=== PATIENT | female | born 1990 | race Caucasian/White ===

== ENCOUNTER 2019-06-12 09:52 | Outpatient (CLI) | payer MEDICAID ==
[~2019-06-12 09:52] MED LIST: FERRIC CARBOXYMALTOSE 750 MG in NORMAL SALINE 250 ML IV PRN; NORMAL SALINE 250 ML IV PRN
[2019-06-12 10:04] VITALS: BP 97/84
== END 2019-06-12 11:10 | disposition home or self-care (01) ==
LOC: II 09:52 → 5TH 09:57 → II 11:10
PROVIDERS: ATTEND Advanced Practice Midwife
DX: O99.019 Anemia complicating pregnancy, unspecified trimester (principal)
CPT/HCPCS: 96365; J7050; J1439

== ENCOUNTER 2019-06-20 12:30 | Outpatient (CLI) | payer MEDICAID ==
[2019-06-20 13:10] VITALS: BP 119/64
== END 2019-06-20 13:35 | disposition home or self-care (01) ==
LOC: II 12:30 → 5TH 12:32 → II 13:35
PROVIDERS: ATTEND Advanced Practice Midwife
DX: O99.019 Anemia complicating pregnancy, unspecified trimester (principal)
CPT/HCPCS: 96365; J7050; J1439

== ENCOUNTER 2019-08-14 01:24 | Inpatient (IN) | payer MEDICAID ==
[2019-08-14] MEDS ORDERED: RINGERS SOLUTION,LACTATED 1,000 ML IV PRN (01:28)
[2019-08-14] MEDS ORDERED: MAG HYDROX/AL HYDROX/SIMETH SUSP 30 ML UDCUP PO PRN (01:28)
[2019-08-14] MEDS ORDERED: RINGERS SOLUTION,LACTATED 300 ML IV ONE (01:28)
[2019-08-14] MEDS ORDERED: ACETAMINOPHEN 325 MG TABLET PO PRN (01:28)
[2019-08-14] MEDS ORDERED: DINOPROSTONE 10 MG VAGINAL INSERT.SR PV ONE (01:28)
[2019-08-14 02:00] LABS: APPEARANCE,URINE SLIGHTLY-CLOUDY; BILIRUBIN,URINE NEGATIVE (NEGATIVE); COLOR,URINE YELLOW; GLUCOSE, URINE NEGATIVE (NEGATIVE); KETONES,URINE NEGATIVE (NEGATIVE); LEUKOCYTE ESTERASE,URINE MODERATE (NEGATIVE); NITRITE,URINE NEGATIVE (NEGATIVE); PROTEIN,URINE NEGATIVE (NEGATIVE); URINE SPECIFIC GRAVITY 1.009; UROBILINOGEN,URINE NEGATIVE mg/dL (<2.0)
[2019-08-14] MEDS ORDERED: OXYTOCIN 10 UNIT/ML VIAL ONE ×2 (02:40→08:55)
[2019-08-14] MEDS ORDERED: DINOPROSTONE 10 MG VAGINAL INSERT.SR ONE (02:40)
[2019-08-14] MEDS ORDERED: ZOLPIDEM TARTRATE 5 MG TABLET ONE (02:40)
[2019-08-14] MEDS ORDERED: MISOPROSTOL 0.2 MG TABLET ONE ×2 (02:41→08:55)
[2019-08-14] MEDS ORDERED: LIDOCAINE 1% INJ-PF (10 MG/ML) 30 ML SDV ONE ×2 (02:41→08:55)
[2019-08-14] MEDS ORDERED: OXYTOCIN/NORMAL SALINE 0 UNIT/0 ML RTUINJ ONE (02:41)
[2019-08-14 02:53] LABS: URINE BARBITURATES SCREEN NEGATIVE; URINE BENZODIAZEPINES SCREEN NEGATIVE; URINE COCAINE SCREEN NEGATIVE; URINE METHADONE SCREEN NEGATIVE; URINE PHENCYCLIDINE SCREEN NEGATIVE
[2019-08-14] MEDS: ZOLPIDEM TARTRATE 5 MG TABLET PO PRN ×2 (03:02→21:58)
[2019-08-14 03:10] LABS: URINE MARIJUANA (THC) SCREEN UNCONFIRMED POSITIVE
[2019-08-14] MEDS ORDERED: MAG HYDROX/AL HYDROX/SIMETH SUSP 30 ML UDCUP ONE (06:40)
[2019-08-14] MEDS ORDERED: FENTANYL CITRATE INJ/PF 100 MCG/2 ML AMPUL IV ONE (07:00)
[2019-08-14] MEDS ORDERED: FENTANYL CITRATE INJ/PF 100 MCG/2 ML AMPUL ONE (07:03)
--- NOTE | 2019-08-14 07:13 | Admission Physical ---
Datetime Report Generated by CPN: 08/14/2019 07:12 CURRENT ADMISSION Chief Complaint: Scheduled Induction of Labor Indication for Induction: Eclampsia-Mild Admit Impression : Term, Intrauterine ; No Active Labor; Intact Membranes; Induction of Labor Admit Plan: Admit to Unit; Initiate Labor Induction Protocol ALLERGIES Medication Allergies: Yes Medication Allergies: Penicillins (06/10/2019); codeine (06/10/2019); sulfamethoxazole (06/10/2019); trimethoprim (06/10/2019) Latex: No Latex Allergies OBSTETRICAL HISTORY EDC: 08/20/2019 00:00 : 4 Para: 2 Livin Gestational Diabetes: No Rh Sensitization: No Incompetent Cervix: No CAMMIE: No Infertility: No ART Treatment: No Uterine Anomaly: No IUGR: No Hx Previous C/S: No Macrosomia: No Hx Loss/Stillborn: No PIH: Yes Hx : No Placenta Previa/Abruption: No Depression/PP Depression: Yes PTL/PROM: No Post Hemorrhage: No Current Procedures: Ultrasound; NST Obstetrical History Comments: G1- 2009 term, IOL for post-dates, G2- 2010, SAB G3- 2016 term, SEE RECORDS Alcohol: No Marijuana : Yes Cocaine: No Other Illicit Drugs: Yes Cigarettes: Current Everyday Smoker. 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 Heart Disease: No Hosp/Surgery: Yes Autoimmune Disorder: No Anesthetic Complications: No Kidney Disease: Yes Abnormal Pap Smear: Yes Neuro/Epilepsy: No Psychiatric Disorders: Yes Other Medical Diseases: No Hepatitis/Liver Disease: No Significant Family History: No Varicosities/Phlebitis: No Trauma/Violence : No Thyroid Dysfunction: No Medical History Comments: recurrent UTIs, anxiety, addiction, depression, PPD, bipolar, ADHD, childbirth, abcess removal in left arm 2013, abnormal pap smear with G3 INFECTIOUS HISTORY Gonorrhea: No Genital Herpes: No Chlamydia: No Tuberculosis: No Syphilis: No Hepatitis: No HIV/AIDS Exposure: No Rash or Viral Illness: No HPV: No PHYSICAL EXAM General: Normal HEENT: Normal Neurologic: Normal Thyroid: Deferred Heart: Normal Lungs: Normal Breast: Deferred Back: Normal Abdomen: Normal Genitourinary Exam: Normal Extremities: Normal DTRs: Normal Pelvic Type: Adequate Vital Signs: Reviewed VAGINAL EXAM Dilatation: 3 Effacement: 50 Station: -2 Contraction Comments: q 2-3 MEMBRANES Membranes: Intact FETUS A EGA: 39.1 Monitoring: External US FHR- Baseline: 120 Variability: Moderate 6-25bpm Accelerations: 15X15 Decelerations: None FHR Category: Category I Presentation: Vertex Admit Comment: 28yo at 39+1ega presents for IOL for PreE. Rh negative. H/o anemia - iron infusions at [facility]. Patient is a smoker but reports that she has cut down. History of meth use - last use in 1st trimester. She reports that baby is up for adoption to her friend - no paperwork available at this time. service planner placed. Admit to labor and delivery and anticipate . PLANS FOR LABOR AND DELIVERY Pain Management: Epidural Feeding Preference: Formula Circumcision: Yes INFORMED CONSENT Informed Consent Obtained: Vaginal Delivery; Induction of Labor; Risks, Benefits and Alternatives Discussed Signature: with User ID: [email or web address]
[2019-08-14 07:15] LABS: HEMATOCRIT 33.3 % (36.0-47.0); HEMOGLOBIN 12.1 g/dL (12.0-15.5); MEAN CORPUSCULAR HGB CONC 36.3 g/dL (32.0-36.0); MEAN CORPUSCULAR VOLUME 94 fl (80-97); PLATELET COUNT 319 10^3/uL (150-450); RED BLOOD COUNT 3.55 10^6/uL (3.72-5.28); RED CELL DISTRIBUTION WIDTH 14.4 % (11.5-14.0); WHITE BLOOD COUNT 14.5 10^3/uL (4.0-10.5)
[2019-08-14] MEDS ORDERED: EPHEDRINE SULFATE INJ 50 MG/1 ML AMPULE ONE (08:53)
[2019-08-14] MEDS ORDERED: BUPIVACAINE HCL 0.25 % INJ/PF (2.5 MG/1 ML) 30 ML VIAL ONE (08:54)
[2019-08-14] MEDS ORDERED: FENTANYL/BUPIVACAINE/NS/PF 300 MCG/150 ML RTUINJ EPI ONE (08:54)
[2019-08-14] MEDS ORDERED: OXYTOCIN/NORMAL SALINE 20 UNIT/1,000 ML RTUINJ ONE (08:55)
[2019-08-14] MEDS ORDERED: OXYTOCIN/NORMAL SALINE 20 UNIT/1,000 ML RTUINJ IV PRN ×2 (10:56→17:38)
[2019-08-14 11:26] LABS: ALBUMIN 2.7 g/dL (3.5-5.0); ALKALINE PHOSPHATASE 122 U/L (38-126); ANION GAP 5 (5-19); ASPARTATE AMINO TRANSFERASE 18 U/L (14-36); BILIRUBIN,TOTAL 0.4 mg/dL (0.2-1.3); BLOOD UREA NITROGEN 7 mg/dL (7-20); CALCIUM 8.7 mg/dL (8.4-10.2); CARBON DIOXIDE 23 mmol/L (22-30); CHLORIDE 106 mmol/L (98-107); GLUCOSE 94 mg/dL (75-110); POTASSIUM 3.3 mmol/L (3.6-5.0); TOTAL PROTEIN 5.4 g/dL (6.3-8.2); URIC ACID 4.1 mg/dL (2.5-6.2)
[2019-08-14] MEDS ORDERED: PSEUDOEPHEDRINE HCL 30 MG TABLET PO PRN (17:38)
[2019-08-14] MEDS ORDERED: DIBUCAINE 1% OINTMENT 28 GM TP PRN (17:38)
[2019-08-14] MEDS ORDERED: GLYCERIN/WITCH HAZEL LEAF 1 EACH MED..WIPE TP PRN (17:38)
[2019-08-14] MEDS ORDERED: ZOLPIDEM TARTRATE 5 MG TABLET PO PRN (17:38)
[2019-08-14] MEDS ORDERED: PROMETHAZINE HCL 25 MG SUPP.RECT PR PRN (17:38)
[2019-08-14] MEDS ORDERED: NA PHOS,M-B/NA PHOS,DI-BA (ADULT) 133 ML ENEMA PR PRN (17:38)
[2019-08-14] MEDS ORDERED: ACETAMINOPHEN WITH CODEINE #3 TABLET PO PRN (17:38)
[2019-08-14] MEDS ORDERED: MAGNESIUM HYDROXIDE SUSP 30 ML UDCUP PO PRN (17:38)
[2019-08-14] MEDS ORDERED: ACETAMINOPHEN 650 MG SUPP.RECT PR PRN (17:38)
[2019-08-14] MEDS ORDERED: MEASLES,MUMPS&RUBELLA VACC/PF 0.5 ML VIAL SUBCUT PRN (17:38)
[2019-08-14] MEDS ORDERED: DIPH/PERTUSS(ACELL)/TETANUS VAC/PF 0.5 ML SYR (>=10YO) IM PRN (17:38)
[2019-08-14] MEDS ORDERED: PROMETHAZINE HCL 25 MG TABLET PO PRN (17:38)
[2019-08-14] MEDS ORDERED: BENZOCAINE/MENTHOL AEROSOL SPRAY 56 ML TOP PRN (17:38)
[2019-08-14] MEDS ORDERED: PROMETHAZINE HCL INJ 25 MG/1 ML VIAL IV PRN (17:38)
[2019-08-14] MEDS ORDERED: DIPHENHYDRAMINE HCL 25 MG CAPSULE PO PRN (17:38)
--- NOTE | 2019-08-14 18:29 | Delivery Summary ---
Del Sum A-C Datetime Report Generated by CPN: 08/14/2019 18:29 DELIVERY PERSONNEL DELIVERY PERSONNEL: [id number] Delivery Doctor:: John Chapa MD Labor and Delivery Nurse:: Tory Randall, RN Nursery Nurse:: Gladis Monroy RN Nursery Nurse:: Isabel Upton RN Controller Instructor/RECHECKER: Annabel Rodgers CNA II Controller Instructor/RECHECKER: Poly Crowell, FINANCIAL SERVICES CONSULTANT Additional Personnel: : Elysia Estrada, RN MATERNAL INFORMATION Delivery Anesthesia: Epidural Medications After Delivery: Pitocin Bolus-Please Comment Meds After Delivery Comment: Pitocin 20units bolus Estimated Blood Loss (ml): 100 Maternal Complications: None LABOR SUMMARY EDC: 08/20/2019 00:00 No. Babies in Womb: 1 Attempted: No Labor Anesthesia: Epidural LABOR INFORMATION Reason for Induction: Pre-Eclampsia Onset of Labor: 08/14/2019 13:45 Complete Dilatation: 08/14/2019 17:15 Cervical Ripening Agents: Milian Balloon Oxytocin: Induction Group B Beta Strep: Negative Antibiotics # of Doses: 0 Antibiotics Time of Last Dose: n/a Name of Antibiotic Given: n/a Steroids Given: None Reason Steroids Not Administered: Not Applicable MEMBRANES Membranes Rupture Method: Artificial Rupture of Membranes: 08/14/2019 13:45 Length of Rupture (hr): 3.72 Amniotic Fluid Color: Clear Amniotic Fluid Amount: Small Amniotic Fluid Odor: Normal STAGES OF LABOR Stage 1 hr: 3 Stage 1 min: 30 Stage 2 hr: 0 Stage 2 min: 13 Stage 3 hr: 0 Stage 3 min: 5 Total Time in Labor hr: 3 Total Time in Labor min: 48 VAGINAL DELIVERY Episiotomy: None Laceration #1: None Laceration Extension #1: N/A Laceration Repair: Not Applicable Laceration Repair Note: midline abrasion Sponge Count Correct: N/A Sharps Count Correct: N/A CSECTION DELIVERY Primary Indication: N/A Secondary Indication: N/A CSection Incidence: N/A Labor: N/A Elective: N/A CSection Incision: N/A BABY A INFORMATION Infant Delivery Date/Time: 08/14/2019 17:28 Method of Delivery: Vaginal Nurse Controlled Delivery: No Born in Route : No : N/A Forceps: N/A Vacuum Extraction: N/A Shoulder Dystocia : No PRESENTATION/POSITION BABY A Presentation: Cephalic Cephalic Presentation: Vertex Vertex Position: Left Occipital Anterior Breech Presentation: N/A PLACENTA INFORMATION BABY A Placenta Delivery Time : 08/14/2019 17:33 Placenta Method of Delivery: Spontaneous Placenta Status: Delivered SCORES BABY A Heart Rate 1 min: >100 bpm Resp Effort 1 min: Good Cry Reflex Irritability 1 min: Cough or Sneeze or Pulls Away Muscle Tone 1 min: Active Motion Color 1 min: Blue/Pale SCORE 1 MIN: 8 Heart Rate 5 min: >100 bpm Resp Effort 5 min: Good Cry Reflex Irritability 5 min: Cough or Sneeze or Pulls Away Muscle Tone 5 min: Active Motion Color 5 min: Body Stirling, Extremities Blue SCORE 5 MIN: 9 INFORMATION BABY A Gestational Age at Delivery: 39.1 Gestational Status: Full Term- 39- 40.6 Weeks Outcome : Liveborn Infant Condition : Stable Sex: Male IDENTIFICATION BABY A Verification Date/Time: 08/14/2019 17:52 ID Band Number: [id number] Mother's Name Verified: Yes Infant RN Verifying : M Porfirio RN WEIGHT/LENGTH BABY A Infant Birthweight (gm): 3844 Weight (lb): 8 Infant Weight (oz): 8 Infant Length (in): 20.50 Length (cm): 52.07 CORD INFORMATION BABY A No. Cord Vessels: 3 Nuchal Cord : N/A Cord Blood Taken: Yes-For Eval (Mom's Blood Type - or O+) Suction: None ASSESSMENT BABY A Complications: None Physical Findings at Delivery: Within Normal Limits Infant Respirations: Appears Normal Skin to Skin: Yes Infant Care By: LUPE Quiroga Transferred To: Remains with Mother SIGNATURES Signature: with User ID: [email or web address] : I was personally available for consultation and serving as supervising physician for the MLP.
[2019-08-14] MEDS ORDERED: IBUPROFEN 800 MG TABLET ONE (19:36)
[2019-08-14] MEDS: FERROUS SULFATE 325 MG TABLET PO SCH (20:58)
[2019-08-14] MEDS: DOCUSATE SODIUM 100 MG CAPSULE PO SCH (20:58)
[2019-08-14] MEDS: LURASIDONE HCL 40 MG TABLET PO SCH (21:54)
[2019-08-14] MEDS: FAMOTIDINE 20 MG TABLET PO SCH (21:58)
[2019-08-14] MEDS ORDERED: IBUPROFEN 800 MG TABLET PO SCH (22:00)
[2019-08-15] MEDS: IBUPROFEN 800 MG TABLET PO SCH ×2 (02:23→09:53)
[2019-08-15] MEDS ORDERED: HYDROMORPHONE HCL INJ/PF 2 MG/ML AMPULE IV ONE (05:15)
[2019-08-15 06:06] LABS: HEMATOCRIT 31.2 % (36.0-47.0); HEMOGLOBIN 11.2 g/dL (12.0-15.5); MEAN CORPUSCULAR HEMOGLOBIN 34.1 pg (27.0-33.4); MEAN CORPUSCULAR VOLUME 95 fl (80-97); PLATELET COUNT 301 10^3/uL (150-450); RED BLOOD COUNT 3.29 10^6/uL (3.72-5.28); RED CELL DISTRIBUTION WIDTH 14.6 % (11.5-14.0); WHITE BLOOD COUNT 17.4 10^3/uL (4.0-10.5)
[2019-08-15] MEDS: FAMOTIDINE 20 MG TABLET PO SCH (09:53)
[2019-08-15] MEDS: FERROUS SULFATE 325 MG TABLET PO SCH (09:53)
[2019-08-15] MEDS: DOCUSATE SODIUM 100 MG CAPSULE PO SCH (09:53)
[2019-08-15] MEDS: LURASIDONE HCL 40 MG TABLET PO SCH (09:53)
[2019-08-15] MEDS ORDERED: PRENATAL VITAMIN W DHA CAPSULE PO SCH (10:00)
[2019-08-15] MEDS ORDERED: SENNOSIDES/DOCUSATE 8.6-50 MG 1 EACH TABLET PO SCH (10:00)
[2019-08-15 12:37] VITALS: BP 129/83
--- NOTE | 2019-08-15 12:47 | PDOC DISCHARGE SUMMARY ---
Impression - Admit/DC Date/PCP Admission Date/Primary Care Provider: 08/14/19 01:24 VANDANA VENTURA MD Discharge Date: 08/15/19 - Discharge Diagnosis (1) Normal vaginal delivery Is this a current diagnosis for this admission?: Yes (2) Drug abuse during Is this a current diagnosis for this admission?: Yes (3) Cannabis abuse Is this a current diagnosis for this admission?: Yes (4) Nicotine dependence Is this a current diagnosis for this admission?: Yes (5) with adoption planned Is this a current diagnosis for this admission?: Yes - Additional Information Discharge Diet: Regular Discharge Activity: Balance Activity w/Rest, Pelvic Rest Referrals: VANDANA VENTURA MD [Primary Care Provider] - Prescriptions: Ibuprofen [Motrin 800 mg Tablet] 800 mg PO Q8HP PRN #60 tablet PRN Reason: Hydrocodone/Acetaminophen [Crosby 5-325 Tablet] 1 each PO Q4HP PRN #10 tablet PRN Reason: Home Medications: Buspirone HCl [Buspar 10 mg Tablet] 10 mg PO DAILY 08/14/19 Lurasidone HCl [Latuda 40 mg Tablet] 40 mg PO DAILY 08/14/19 Pnv No.103/Folic/Om3s/Fish Oil [ Gummies] 1 tab PO DAILY 08/14/19 Hydrocodone/Acetaminophen [Crosby 5-325 Tablet] 1 each PO Q4HP PRN #10 tablet 08/15/19 Ibuprofen [Motrin 800 mg Tablet] 800 mg PO Q8HP PRN #60 tablet 08/15/19 Results Laboratory Results: WBC 17.4 10^3/uL (4.0-10.5) H 08/15/19 05:47 RBC 3.29 10^6/uL (3.72-5.28) L 08/15/19 05:47 Hgb 11.2 g/dL (12.0-15.5) L 08/15/19 05:47 Hct 31.2 % (36.0-47.0) L 08/15/19 05:47 MCV 95 fl (80-97) 08/15/19 05:47 MCH 34.1 pg (27.0-33.4) H 08/15/19 05:47 MCHC 36.0 g/dL (32.0-36.0) 08/15/19 05:47 RDW 14.6 % (11.5-14.0) H 08/15/19 05:47 Plt Count 301 10^3/uL (150-450) 08/15/19 05:47 Sodium 133.8 mmol/L (137-145) L 08/14/19 10:56 Potassium 3.3 mmol/L (3.6-5.0) L 08/14/19 10:56 Chloride 106 mmol/L (98-107) 08/14/19 10:56 Carbon Dioxide 23 mmol/L (22-30) 08/14/19 10:56 Anion Gap 5 (5-19) 08/14/19 10:56 BUN 7 mg/dL (7-20) 08/14/19 10:56 Creatinine 0.47 mg/dL (0.52-1.25) L 08/14/19 10:56 Est GFR ( Amer) > 60 (>60) 08/14/19 10:56 Est GFR (MDRD) Non-Af > 60 (>60) 08/14/19 10:56 Glucose 94 mg/dL (75-110) 08/14/19 10:56 Uric Acid 4.1 mg/dL (2.5-6.2) 08/14/19 10:56 Calcium 8.7 mg/dL (8.4-10.2) 08/14/19 10:56 Total Bilirubin 0.4 mg/dL (0.2-1.3) 08/14/19 10:56 Direct Bilirubin 0.0 mg/dL (0.0-0.4) 08/14/19 10:56 Neonat Total Bilirubin Not Reportable 08/14/19 10:56 Neonat Direct Bilirubin Not Reportable 08/14/19 10:56 Neonat Indirect Bili Not Reportable 08/14/19 10:56 AST 18 U/L (14-36) 08/14/19 10:56 ALT 14 U/L (<35) 08/14/19 10:56 Alkaline Phosphatase 122 U/L (38-126) 08/14/19 10:56 Lactate Dehydrogenase 142 U/L (120-246) 08/14/19 10:56 Total Protein 5.4 g/dL (6.3-8.2) L 08/14/19 10:56 Albumin 2.7 g/dL (3.5-5.0) L 08/14/19 10:56 Urine Color YELLOW 08/14/19 01:41 Urine Appearance SLIGHTLY-CLOUDY 08/14/19 01:41 Urine pH 7.0 (5.0-9.0) 08/14/19 01:41 Ur Specific [place] 1.009 08/14/19 01:41 Urine Protein NEGATIVE mg/dL (NEGATIVE) 08/14/19 01:41 Urine Glucose (UA) NEGATIVE mg/dL (NEGATIVE) 08/14/19 01:41 Urine Ketones NEGATIVE mg/dL (NEGATIVE) 08/14/19 01:41 Urine Blood NEGATIVE (NEGATIVE) 08/14/19 01:41 Urine Nitrite NEGATIVE (NEGATIVE) 08/14/19 01:41 Urine Bilirubin NEGATIVE (NEGATIVE) 08/14/19 01:41 Urine Urobilinogen NEGATIVE mg/dL (<2.0) 08/14/19 01:41 Ur Leukocyte Esterase MODERATE (NEGATIVE) H 08/14/19 01:41 Urine Ascorbic Acid NEGATIVE (NEGATIVE) 08/14/19 01:41 Urine Opiates Screen NEGATIVE 08/14/19 01:41 Urine Methadone Screen NEGATIVE 08/14/19 01:41 Ur Barbiturates Screen NEGATIVE 08/14/19 01:41 Ur Phencyclidine Scrn NEGATIVE 08/14/19 01:41 Ur Amphetamines Screen 08/14/19 01:41 U Benzodiazepines Scrn NEGATIVE 08/14/19 01:41 Urine Cocaine Screen NEGATIVE 08/14/19 01:41 U Marijuana (THC) Screen UNCONFIRMED POSITIVE 08/14/19 01:41 RPR NONREACTIVE (NONREACTIVE) 08/14/19 07:03 Blood Type O NEGATIVE 08/15/19 05:47 Antibody Screen NEGATIVE 08/14/19 07:03 Screen NEGATIVE 08/15/19 05:47 Plan Plan of Treatment: follow up in 4 weeks at [facility] for post check
[2019-08-15] MEDS ORDERED: MEDROXYPROGESTERONE ACET INJ 150 MG/1 ML VIAL IM ONE (13:33)
== END 2019-08-15 14:22 | disposition home or self-care (01) | DRG 807 ==
LOC: LR 01:24 → 2S 20:30
PROVIDERS: ADMIT Student in an Organized Health Care Education/Training Program; ATTEND Student in an Organized Health Care Education/Training Program
PROC: 10E0XZZ Delivery of Products of Conception, External Approach (ICD-10-PCS; principal; 2019-08-14)
PROC: 3E033VJ Introduction of Other Hormone into Peripheral Vein, Percutaneous Approach (ICD-10-PCS; 2019-08-14)
PROC: 10907ZC Drainage of Amniotic Fluid, Therapeutic from Products of Conception, Via Natural or Artificial Opening (ICD-10-PCS; 2019-08-14)
PROC: 3E0234Z Introduction of Serum, Toxoid and Vaccine into Muscle, Percutaneous Approach (ICD-10-PCS; 2019-08-15)
DX: O14.04 Mild to moderate pre-eclampsia, complicating childbirth (principal); Z37.0 Single live birth; O99.323 Drug use complicating pregnancy, third trimester; F12.10 Cannabis abuse, uncomplicated; O99.334 Smoking (tobacco) complicating childbirth; F17.210 Nicotine dependence, cigarettes, uncomplicated; O26.893 Other specified pregnancy related conditions, third trimester; Z67.41 Type O blood, Rh negative; Z88.6 Allergy status to analgesic agent; Z88.1 Allergy status to other antibiotic agents; Z88.0 Allergy status to penicillin; Z88.3 Allergy status to other anti-infective agents; Z88.2 Allergy status to sulfonamides; Z3A.39 39 weeks gestation of pregnancy
CPT/HCPCS: 1967; 36415; 80053; 80307; 80349; 81005; 83615; 84550; 85027; 85461; 86592; 86850; 86900; 86901; 94760; G0480; J1050; J1170; J2590; J2790; J3010; J3490